=== PATIENT | male | born 1985 | race Caucasian/White ===

== ENCOUNTER 2025-08-27 12:57 | Emergency (ER) | payer OTHER ==
[~2025-08-27] VITALS: Ht 177.8 cm; Wt 77.1 kg
[2025-08-27] MEDS ORDERED: IOHEXOL 300 MG/ML 100 ML VIAL IV ONE (13:25)
[2025-08-27 13:49] LABS: BASO # 0.1 10*3/uL (0.0-0.1); BASO % 0.6 % (0.0-1.0); EOS # 0.3 10*3/uL (0.0-0.4); EOS % 3.7 % (1.0-4.0); MEAN CELL VOLUME 97.0 fl (80.0-94.0); MEAN CORPUSCULAR HGB 33.3 pg (27.0-31.0); MEAN PLATELET VOLUME 8.9 fl (9.6-12.3); MONO # 0.5 10*3/uL (0.1-1.0); MONO % 5.2 % (3.0-9.0); NEUT # 6.2 10*3/uL (2.3-7.9); NEUT % 71.8 % (47.0-73.0); NUCLEATED RED BLOOD CELL 0.0 % (0.0-0.0); NUCLEATED RED BLOOD CELL 0.0 10*3/uL (0.0-0.0); PLATELET COUNT AUTOMATED 321 10*3/uL (130-400); RED CELL DISTRI WIDTH 12.3 % (0-14.5)
[2025-08-27 14:18] LABS: BUN 11 mg/dl (9-23)
[2025-08-27] MEDS ORDERED: CEPHALEXIN500 M1 PO (17:32)
[2025-08-27] MEDS ORDERED: HYDROCODONE-AC1 EAC1 PO (17:32)
[2025-08-27] MEDS ORDERED: Acetaminophen/Hydrocodone 5 MG/325 MG TABLET PO ONE (17:45)
== END 2025-08-27 18:03 | disposition home or self-care (01) ==
LOC: ED 12:57
DX: L03.113 Cellulitis of right upper limb (principal)